=== PATIENT | male | born 1995 | race Caucasian/White ===

== ENCOUNTER 2016-07-20 20:40 | Inpatient (IN) | payer OTHER ==
[~2016-07-20] VITALS: Ht 172.7 cm; Wt 70.3 kg
[2016-07-20 21:21] LABS: BASO % 0.1 % (0.0-1.0); EOS # 0.2 K/mm3 (0.0-0.50); EOS % 1.5 % (0.0-3.0); LARGE UNSTAINED CELL # 0.2 K/mm3 (0.0-0.4); LARGE UNSTAINED CELL % 1.1 % (0.0-4.0); LYMPH # 1.4 K/mm3 (1.5-6.5); MEAN CORPUSCULAR HEMOGLOBIN 30.5 pg (27.0-33.0); MONO # 0.7 K/mm3 (0.0-0.8); MONO % 4.2 % (0.0-5.0); NEUTROPHILS # 13.2 K/mm3 (1.8-7.7); NEUTROPHILS % 84.1 % (36.0-66.0); PLATELET COUNT, AUTOMATED 290 k/mm3 (150-450); RED CELL DISTRIBUTION WIDTH 11.6 % (11.5-14.5); WHITE BLOOD COUNT 15.7 K/mm3 (4.0-10.0)
[2016-07-20] MEDS ORDERED: CLEO150C PO (21:24)
[2016-07-20] MEDS ORDERED: PERI0.126 SSP (21:24)
[2016-07-20] MEDS ORDERED: HYDR-3713 PO (21:24)
[2016-07-20] MEDS ORDERED: IBUP60TA PO (21:24)
[2016-07-20 21:51] LABS: ANION GAP 10 MEQ/L (8-16); BLOOD UREA NITROGEN 10 MG/DL (7-18); CALCIUM LEVEL 9.4 MG/DL (8.5-10.1); CARBON DIOXIDE LEVEL 29 MEQ/L (21-32); CHLORIDE LEVEL 98 MEQ/L (98-107); CREATININE FOR GFR 1.01 MG/DL (0.70-1.30); GLUCOSE, FASTING 109 MG/DL (70-105); POTASSIUM SERUM 3.5 MEQ/L (3.5-5.1); SODIUM LEVEL 137 MEQ/L (136-145)
[2016-07-20] MEDS ORDERED: ISOVUE-370 76% 100ML VIAL (Q9967) As Ordered ONE (22:09)
[2016-07-20] MEDS ORDERED: UNASYN 3 GM VIAL As Ordered ONE (22:25)
--- NOTE | 2016-07-20 23:00 | REPUSA ---
CT of the soft tissues of the neck with contrast Clinical history: swelling. Technique: Multiple axial CT images were obtained from the base of the skull to the upper thorax afte r administration of nonionic intravenous contrast. Coronal and sagittal reconstructions were also obt ained. Findings: The visualized paranasal sinuses are clear. The pterygopalatine fossa, pterygoid plates and pterygoid muscles are unremarkable. The mucosa of the naso- and oropharynx appears unremarkable. The hypopharynx and larynx show no pathology. The visualized osseous structures are intact. The airway i s patent. No focal mass is appreciated. There is no evidence of lymphadenopathy. The thyroid gland ap pears unremarkable. There is extensive superficial soft tissue swelling in the left mandibular and ma xillary regions. No focal mass or fluid collection is identified. Tiny pockets of gas are seen at the tooth extraction site in the posterior left mandible. Impression: Diffuse ill-defined soft tissue swelling in the left maxillary and mandibular regions, co nsistent with cellulitis. No discrete evidence of an abscess is identified at this time. Follow-up is suggested as clinically indicated.
[2016-07-20] MEDS ORDERED: ACETAMINOPHEN TAB 650MG DOSE (2X325MG) As Ordered ONE (23:13)
[2016-07-20] MEDS ORDERED: MORPHINE 2 MG/ML 1ML SYRINGE IV PRN (23:30)
[2016-07-20] MEDS ORDERED: ONDANSETRON 4MG/2ML VIAL (J2405) IV PRN (23:30)
[2016-07-20] MEDS ORDERED: PERCOCET 5MG/325MG TAB PO PRN (23:30)
[2016-07-20] MEDS ORDERED: ONDANSETRON 4 MG TAB (S0181) PO PRN (23:30)
[2016-07-20] MEDS ORDERED: ACETAMINOPHEN TAB 650MG DOSE (2X325MG) PO PRN (23:30)
[2016-07-21] VITALS (8 sets, daily range): BP systolic 139–168; BP diastolic 70–92
--- NOTE | 2016-07-21 00:06 | HPEPDOC ---
Medical History and Physical Date of Admission Jul 20, 2016 at 23:22 History and Physical HISTORY AND PHYSICAL Date of admission: 07/20/2016 PCP: Wen Doll Chief complaint: My face was swelling HPI: 20-year-old healthy male who had routine extraction of all 4 wisdom teeth on Sunday. He states that yesterday, he started noticing he was having some swelling on the left side of his face, and when it didn't get any better today, he returned to his oral surgeon on post. At that time, the oral surgeon placed 2 drains, and started him on some clindamycin. He was instructed, that if the swelling did not improve, he should go to the ER. This evening, he felt that his swelling was worse, so he came into the ER. His surgeon has evidently spoken to Dr. Sosa, who has requested that the patient be admitted for IV antibiotics, and is planning to see the patient in consultation tomorrow. The patient reports some fevers and chills, as well as associated nausea. However, he denies any difficulty breathing or feelings like his throat was swelling. 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 He is and expecting his first child. He denies any drug or alcohol use. Allergies: No known drug allergies Review of systems: General: Positive for fever and chills Eyes: Negative for vision changes and ocular discharge ENT: Negative for sore throat and nose bleed Cardiovascular: Negative for chest pain and palpitations Respiratory: Negative for cough and shortness of breath GI: Negative for vomiting, diarrhea, constipation. Positive for nausea. Musculoskeletal: Negative for neck and back pain. Skin: Negative for rash Neuro: Negative for headache, numbness, tingling. Positive for dizziness. Psych: Negative for suicidal ideation and depression Endocrine: Negative for polyuria : Negative For dysuria Heme: Negative for bruising and bleeding Home meds: See below Physical exam: Vital signs: Blood pressure 136/79, HR 95, temperature 101.3, O2 sat 96% on room air, RR 16 Gen.: awake, alert, no acute distress Eyes: Extraocular movements intact, normal sclera ENT: Moist mucous membranes, drain visible on lower left aspect of mouth, significant external swelling of left mandible Cardiovascular: RRR, no murmurs rubs or gallops Lungs: clear to auscultation bilaterally, no rales, rhonchi, or wheeze Abdomen: Soft, NT/ND, normal BS Musculoskeletal: normal range of motion Extremities: No peripheral edema Neuro: alert and oriented 3, normal speech, no focal deficits Psych: Normal mood with congruent affect Labs and radiology: See below WBC 15.[address] of the neck and mandible shows cellulitis but no abscess Assessment and plan: 20-year-old healthy male who presents with swelling of his left face status post recent wisdom teeth extraction, and she was admitted with sepsis secondary to facial cellulitis. 1. Sepsis secondary to facial cellulitis: Upon arrival to the ED, the patient was tachycardic to 113 with a fever of 101.3. He has a white count of 15.7. CT imaging of his neck and mandible are consistent with cellulitis but show no evidence of abscess. At this time, we will start the patient on IV Unasyn, and follow-up is pending blood cultures. Dr. Sosa with oral surgery, will see the patient tomorrow in consultation. We will continue the patient's chlorhexidine rinse. He is currently hemodynamically stable with no evidence of hypotension or other organ dysfunction. DVT prophylaxis: Lovenox Dispo: admit as an inpatient to the service of Dr. Mishra CODE STATUS: Full code Vital Signs see above Laboratory Data Labs 24H Laboratory Tests 2 07/20/16 21:09: Anion Gap 10, White Blood Count 15.7H, Red Blood Count 5.40, Hemoglobin 16.4, Hematocrit 47.0, Mean Corpuscular Volume 87.0, Mean Corpuscular Hemoglobin 30.5 , Mean Corpuscular Hemoglobin Concent 35.0, Red Cell Distribution Width 11.6, Platelet Count 290, Neutrophils (%) (Auto) 84.1H, Lymphocytes (%) (Auto) 9.0L, Monocytes (%) (Auto) 4.2, Eosinophils (%) (Auto) 1.5, Basophils (%) (Auto) 0.1, Neutrophils # (Auto) 13.2H, Lymphocytes # (Auto) 1.4L, Monocytes # (Auto) 0.7, Eosinophils # (Auto) 0.2, Basophils # (Auto) 0.0, Blood Urea Nitrogen 10, Creatinine 1.01, Sodium Level 137, Potassium Level 3.5, Chloride Level 98, Carbon Dioxide Level 29, Calcium Level 9.4, Large Unclassified Cells # 0.2, Large Unclassified Cells % 1.1 CBC/BMP Laboratory Tests 07/20/16 21:09 Calcium Level 9.4, Red Blood Count 5.40, Mean Corpuscular Volume 87.0, Mean Corpuscular Hemoglobin 30.5, Mean Corpuscular Hemoglobin Concent 35.0, Red Cell Distribution Width 11.6, Neutrophils (%) (Auto) 84.1 H, Lymphocytes (%) (Auto) 9.0 L, Monocytes (%) (Auto) 4.2, Eosinophils (%) (Auto) 1.5, Basophils (%) (Auto ) 0.1, Neutrophils # (Auto) 13.2 H, Lymphocytes # (Auto) 1.4 L, Monocytes # ( Auto) 0.7, Eosinophils # (Auto) 0.2, Basophils # (Auto) 0.0 Microbiology Microbiology 07/20/16 Blood Culture, Received Pending 07/20/16 Blood Culture, Received Pending Home Medications Scheduled Chlorhexidine Gluconate (Peridex) 0.12 % Vivian 10 ML SSP TID Clindamycin Hcl (Cleocin) 150 Mg Cap 300 MG PO Q6H Scheduled PRN Acetaminophen/Hydrocodone (Hydrocodone/Acetaminophen 5-325 mg) 1 Tab Tab 1 TAB PO Q6H PRN PRN PAIN Ibuprofen (Ibuprofen) 600 Mg Tab 600 MG PO Q6H PRN PRN PAIN Allergies Coded Allergies: No Known Allergies (Unverified , 07/20/16) LONNY CHRISTY Jul 21, 2016 00:06
--- NOTE | 2016-07-21 00:57 | EDDOCDS ---
Nurse's Notes [facility] Name: Brian Dyson Age: 20 yrs Sex: Male : 1995 Arrival Date: 07/20/2016 Time: 20:40 Bed 8 Private MD: Other - Complete Info On Cds Diagnosis: Localized swelling, mass and lump of skin and subcutaneous tissue-left maxilla/mandibular spaces Presentation: 07/20 20:49 Presenting complaint: Patient states: [place] teeth removed Sunday by Dr. Dior at [place] [id number] [facility] on [address]. Was seen in the office today and told it was infected and put on antibiotics and a drain was put in. Pt reports that the swelling has increased and spread into his neck. Denies difficulty swallowing at this time. Pain is currently 3/10. Adult Sepsis Screening: The patient does not have new or worsening altered mentation. Patient's respiratory rate is less than 22. Systolic blood pressure is greater than 100. Patient has a qSOFA score of 0- Negative Sepsis Screen. Suicide/Homicide risk assessment- the patient denies having any suicidal and/or homicidal ideations and does not present with any other emotional, behavioral or mental health complaints. 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 Transition of care: patient was not received from another setting of care. 20:49 Acuity: ILYA Level 2 1 20:49 Method Of Arrival: Walkin/Carried/Asstd lf1 Triage Assessment: 20:55 General: Appears uncomfortable, Behavior is cooperative. Pain: Location: mouth Pain 1 currently is 3 out of 10 on a pain scale. HIV screening NA for this visit Offered previously. Neurological: Level of Consciousness is awake, alert. EENT: swelling to face and neck. Respiratory: Respiratory effort is even, unlabored. GI: Denies nausea, vomiting. Historical: - Allergies: No known drug Allergies; - Home Meds: 1. hydrocodone-acetaminophen 5-325 mg Oral tab 1 tab every 6 hours (Last dose: 07/20/2016 11:00) 2. ibuprofen 600 mg Oral tab 1 tab every 6 hours (Last dose: 07/20/2016 13:00) 3. Cleocin 300 mg Oral cap 1 cap every 6 hours (Last dose: 07/20/2016 20:00) - PMHx: none; - PSHx: Appendectomy; - Social history: Smoking status: Patient states was never smoker of tobacco. No barriers to communication noted, The patient speaks fluent Upper Sorbian, Speaks appropriately for age, Preferred Language: Upper Sorbian. - Family history: Not pertinent. - : The pt / caregiver states he / she is not on anticoagulants. Home medication list is obtained from the patient. - Exposure Risk Screening:: None identified. Screenin:56 Screening information is obtained from the patient. Fall risk: No risks identified. lf1 Assistance ADL's: requires no assistance with activities of daily living. Abuse/DV Screen: The patient / caregiver reports he/she is: not in a situation that causes fear, pain or injury. Nutritional screening: No deficits noted. Advance Directives: Currently, there is no health care proxy. There is no active DNR order. There is no living will. home support is adequate. Assessment: 21:19 General: Appears in no apparent distress, comfortable, Behavior is appropriate for age, ko2 cooperative. Pain: Location: left cheek, mouth and left jaw. Neurological: Level of Consciousness is awake, alert. Respiratory: Airway is patent Respiratory effort is even, unlabored, Respiratory pattern is regular, symmetrical, Breath sounds are clear bilaterally. Derm: Skin is normal. 22:24 General: Appears in no apparent distress, comfortable, Behavior is appropriate for age, ko2 cooperative. Neurological: Level of Consciousness is awake, alert. Respiratory: Airway is patent Respiratory effort is even, unlabored. Derm: Skin is normal. 23:22 General: Appears in no apparent distress, comfortable, Behavior is appropriate for age, ko2 cooperative. Neurological: Level of Consciousness is awake, alert. Respiratory: Airway is patent Respiratory effort is even, unlabored, Respiratory pattern is. Derm: Skin is normal. 07/21 00:38 General: Appears in no apparent distress, Behavior is appropriate for age, cooperative. ko2 Neurological: Level of Consciousness is awake, alert. Respiratory: Airway is patent Respiratory effort is even, unlabored. Derm: Skin is normal. Vital Signs: 07/20 20:42 BP 156 / 80; Pulse 113; Resp 18 S; Temp 101.3(O); Pulse Ox 99% on R/A; Weight 70.31 kg gr2 (R); Height 68 in. (172.72 cm) (R); Pain 3/10; 20:58 BP 145 / 76 (auto/); ko2 20:59 Pulse 112 MON; Pulse Ox 97% ; ko2 21:43 BP 150 / 76 (auto/); ko2 21:44 Pulse 86 MON; Pulse Ox 98% ; ko2 22:13 Pulse 82 MON; Pulse Ox 99% ; ko2 22:36 BP 142 / 88 (auto/); ko2 22:43 BP 143 / 84 (auto/); ko2 22:43 Pulse 88 MON; Pulse Ox 100% ; ko2 23:13 BP 144 / 76 (auto/); ko2 23:14 Pulse 92 MON; Pulse Ox 99% ; ko2 07/21 00:09 BP 134 / 68; Pulse 99; Resp 16; Temp 99.5(O); Pulse Ox 97% ; Pain 2/10; ko2 07/20 20:42 Body Mass Index 23.57 (70.31 kg, 172.72 cm) gr2 Vitals: 07/20 20:42 Log In Time: July 20, 2016 at 20:42. gr2 ED Course: 20:41 Patient visited by Betty Amor. gr2 20:41 Other - Complete Info On Cds is Private Physician. gr2 20:41 Patient moved to Waiting gr2 20:43 Patient visited by Betty Amor. gr2 20:43 Patient moved to Pre RCE gr2 20:53 Triage Initiated lf1 20:54 Karina Sloan FNP is PHCP. le 20:54 Stephanie Salvador,RN is Primary Nurse. cz 20:54 Patient moved to 8 cz 21:08 Patient visited by Karina Sloan FNP. le 21:12 Patient visited by Karina Sloan FNP. le 21:19 BLOOD CULTURES Sent. ko2 21:20 The patient / caregiver is instructed regarding the plan of care and ED course. ko2 21:20 Inserted saline lock: 20 gauge in left antecubital area and blood collected. The ko2 patient tolerated the procedure well. 22:23 Patient visited by Barbie Jeffers PCA. devonte 23:09 CT Neck With Contrast Returned. EDMS 23:14 Tory Lopez is Hospitalizing Provider. le 23:45 [facility] [place] Payment Agreement was scanned into [employer] and attached to record. pm4 07/21 00:39 No procedures done that require assistance. ko2 00:41 Patient visited by Robb Collins PCA. kb5 Administered Medications: 07/20 21:19 Drug: NS 0.9% 1000 ml [sodium chloride 0.9 % intravenous solution] Route: IV; Rate: 150 ko2 mL/hr; Site: left antecubital; 22:38 Drug: Ampicillin-Sulbactam Sodium 3 grams [ampicillin-sulbactam 1.5 gram solution for ko2 injection] Route: IVPB; Infused Over: 30 mins; Site: left antecubital; 07/21 00:10 Follow up: IV Intake: 100ml ko2 00:10 Follow up: IV Status: Completed infusion ko2 07/20 23:17 Drug: Acetaminophen 650 mg [acetaminophen 160 mg/5 mL (5 mL) oral solution (20 mL)] ko2 Route: PO; Intake: 07/21 00:10 IV: 100.00ml; Total: 100.00ml. ko2 Order Results: Lab Order: CBC with Diff; SPEC'M 07/20/16 21:09 Test: WHITE BLOOD COUNT; Value: 15.7; Range: 4.0-10.0; Abnormal: Above high normal; Units: K/mm3; Status: F Test: RED BLOOD COUNT; Value: 5.40; Range: 4.30-6.10; Units: M/mm3; Status: F Test: HEMOGLOBIN; Value: 16.4; Range: 14.0-18.0; Units: g/dl; Status: F Test: HEMATOCRIT; Value: 47.0; Range: 42.0-52.0; Units: %; Status: F Test: MEAN CORPUSCULAR VOLUME; Value: 87.0; Range: 80.0-96.0; Units: fl; Status: F Test: MEAN CORPUSCULAR HEMOGLOBIN; Value: 30.5; Range: 27.0-33.0; Units: pg; Status: F Test: MEAN CORPUSCULAR HGB CONC; Value: 35.0; Range: 32.0-36.5; Units: g/dl; Status: F Test: RED CELL DISTRIBUTION WIDTH; Value: 11.6; Range: 11.5-14.5; Units: %; Status: F Test: PLATELET COUNT, AUTOMATED; Value: 290; Range: 150-450; Units: k/mm3; Status: F Test: NEUTROPHILS %; Value: 84.1; Range: 36.0-66.0; Abnormal: Above high normal; Units: %; Status: F Test: LYMPH %; Value: 9.0; Range: 24.0-44.0; Abnormal: Below low normal; Units: %; Status: F Test: MONO %; Value: 4.2; Range: 0.0-5.0; Units: %; Status: F Test: EOS %; Value: 1.5; Range: 0.0-3.0; Units: %; Status: F Test: BASO %; Value: 0.1; Range: 0.0-1.0; Units: %; Status: F Test: LARGE UNSTAINED CELL %; Value: 1.1; Range: 0.0-4.0; Units: %; Status: F Test: NEUTROPHILS #; Value: 13.2; Range: 1.8-7.7; Abnormal: Above high normal; Units: K/mm3; Status: F Test: LYMPH #; Value: 1.4; Range: 1.5-6.5; Abnormal: Below low normal; Units: K/mm3; Status: F Test: MONO #; Value: 0.7; Range: 0.0-0.8; Units: K/mm3; Status: F Test: EOS #; Value: 0.2; Range: 0.0-0.50; Units: K/mm3; Status: F Test: BASO #; Value: 0.0; Range: 0.0-0.2; Units: K/mm3; Status: F Test: LARGE UNSTAINED CELL #; Value: 0.2; Range: 0.0-0.4; Units: K/mm3; Status: F Lab Order: [facility]; SPEC'M 07/20/16 21:09 Test: GLUCOSE, FASTING; Value: 109; Range: 70-105; Abnormal: Above high normal; Units: MG/DL; Status: F Test: BLOOD UREA NITROGEN; Value: 10; Range: 7-18; Units: MG/DL; Status: F Test: CREATININE FOR GFR; Value: 1.01; Range: 0.70-1.30; Units: MG/DL; Status: F Test: SODIUM LEVEL; Value: 137; Range: 136-145; Units: MEQ/L; Status: F Test: POTASSIUM SERUM; Value: 3.5; Range: 3.5-5.1; Units: MEQ/L; Status: F Test: CHLORIDE LEVEL; Value: 98; Range: 98-107; Units: MEQ/L; Status: F Test: CARBON DIOXIDE LEVEL; Value: 29; Range: 21-32; Units: MEQ/L; Status: F Test: ANION GAP; Value: 10; Range: 8-16; Units: MEQ/L; Status: F Test: CALCIUM LEVEL; Value: 9.4; Range: 8.5-10.1; Units: MG/DL; Status: F Radiology Order: CT Neck With Contrast Test: CT Neck With Contrast REASON FOR EXAMINATION: jaw/neck swelling s/p extraction; ; CT of the soft tissues of the neck with contrast; Clinical history: swelling.; Technique: Multiple axial CT images were obtained from the base of the skull to the upper thorax afte; r administration of nonionic intravenous contrast. Coronal and sagittal reconstructions were also obt; ained.; Findings: The visualized paranasal sinuses are clear. The pterygopalatine fossa, pterygoid plates and; pterygoid muscles are unremarkable. The mucosa of the naso- and oropharynx appears unremarkable. The; hypopharynx and larynx show no pathology. The visualized osseous structures are intact. The airway i; s patent. No focal mass is appreciated. There is no evidence of lymphadenopathy. The thyroid gland ap; pears unremarkable. There is extensive superficial soft tissue swelling in the left mandibular and ma; xillary regions. No focal mass or fluid collection is identified. Tiny pockets of gas are seen at the; tooth extraction site in the posterior left mandible.; Impression: Diffuse ill-defined soft tissue swelling in the left maxillary and mandibular regions, co; nsistent with cellulitis. No discrete evidence of an abscess is identified at this time. Follow-up is; suggested as clinically indicated.; ; Outcome: 07/20 23:15 Decision to Hospitalize by Provider. le 23:51 CT Study completed. ko2 07/21 00:39 Discharge Assessment: Patient awake, alert and oriented x 3. No cognitive and/or ko2 functional deficits noted. Patient verbalized understanding of disposition instructions. patient administered narcotics - no. The following High Risk Discharge criteria are identified: None. Admitted to Pediatrics accompanied by tech, family with patient, via wheelchair, with chart. Condition: stable. Admission hand-off: Report called to VIKA Varmas. Property sent home with patient. 00:57 Patient left the ED. ml3 Signatures: Dispatcher [employer] EDMS Manuel Ames RN RN cz Lopresti, Mary-Elizabeth, Milker Machine Unit ml3 Robb Collins, HAT RENOVATOR HAT RENOVATOR kb5 Karina Diane RN RN lf1 Karina Sloan, TITLE I DIRECTOR TITLE I DIRECTOR Barbie Henderson, HAT RENOVATOR HAT RENOVATOR devonte Betty Amor 2 Stephanie Salvador RN RN ko2 Rivera Cook, Reg Reg pm4 MTDD
--- NOTE | 2016-07-21 00:57 | EDDOCDS ---
Physician Documentation [facility] Name: Brian Dyson Age: 20 yrs Sex: Male : 1995 Arrival Date: 07/20/2016 Time: 20:40 Bed 8 Private MD: Other - Complete Info On Cds Disposition: 07/20/16 23:15 Hospitalization ordered by Tory Lopez for Observation. Preliminary diagnosis is Localized swelling, mass and lump of skin and subcutaneous tissue - left maxilla/mandibular spaces. - Bed requested for M PED. - Status is Observation. ml3 - Condition is Stable. - Problem is new. - Symptoms are unchanged. Historical: - Allergies: No known drug Allergies; - Home Meds: 1. hydrocodone-acetaminophen 5-325 mg Oral tab 1 tab every 6 hours (Last dose: 07/20/2016 11:00) 2. ibuprofen 600 mg Oral tab 1 tab every 6 hours (Last dose: 07/20/2016 13:00) 3. Cleocin 300 mg Oral cap 1 cap every 6 hours (Last dose: 07/20/2016 20:00) - PMHx: none; - PSHx: Appendectomy; - Social history: Smoking status: Patient states was never smoker of tobacco. No barriers to communication noted, The patient speaks fluent East Timorese, Speaks appropriately for age, Preferred Language: East Timorese. - Family history: Not pertinent. - : The pt / caregiver states he / she is not on anticoagulants. Home medication list is obtained from the patient. - Exposure Risk Screening:: None identified. Vital Signs: 07/20 20:42 BP 156 / 80; Pulse 113; Resp 18 S; Temp 101.3(O); Pulse Ox 99% on R/A; Weight 70.31 kg gr2 / 155.01 lbs (R); Height 68 in. (172.72 cm) (R); Pain 3/10; 20:58 BP 145 / 76 (auto/); ko2 20:59 Pulse 112 MON; Pulse Ox 97% ; ko2 21:43 BP 150 / 76 (auto/); ko2 21:44 Pulse 86 MON; Pulse Ox 98% ; ko2 22:13 Pulse 82 MON; Pulse Ox 99% ; ko2 22:36 BP 142 / 88 (auto/); ko2 22:43 BP 143 / 84 (auto/); ko2 22:43 Pulse 88 MON; Pulse Ox 100% ; ko2 23:13 BP 144 / 76 (auto/); ko2 23:14 Pulse 92 MON; Pulse Ox 99% ; ko2 07/21 00:09 BP 134 / 68; Pulse 99; Resp 16; Temp 99.5(O); Pulse Ox 97% ; Pain 2/10; ko2 07/20 20:42 Body Mass Index 23.57 (70.31 kg, 172.72 cm) gr2 MDM: 07/20 20:58 IV Saline Lock ordered. le 20:58 -Blood Culture (Adults Only), peripheral from different site, or from device/port/PICC le etc. if present ordered. 20:58 NS 0.9% 1000 ml IV at 150 mL/hr continuous ordered. le 20:58 Ampicillin-Sulbactam Sodium 3 grams IVPB once over 30 mins; dilute in 100mL of NS or le D5W ordered. 20:58 CBC with Diff Ordered. EDMS 20:59 BMP Ordered. EDMS 20:59 -Blood Culture Ordered. EDMS 20:59 -Blood Culture (Adults Only), peripheral from different site, or from device/port/PICC ml3 etc. if present complete. 20:59 CT Neck With Contrast Ordered. EDMS 20:59 BED REQUEST+ADM ordered. EDMS 21:00 BLOOD CULTURES Ordered. EDMS 21:19 NOTHING BY MOUTH+DIET ordered. EDMS 21:58 CBC with Diff Reviewed. le 21:58 BMP Reviewed. le 23:04 Acetaminophen Liquid 650 mg PO once ordered. le 23:17 Acetaminophen Liquid 650 mg PO once ordered. ko2 23:27 CBC WITH DIFFERENTIAL Ordered. EDMS 23:27 BASIC METABOLIC PROFILE Ordered. EDMS 23:27 MAGNESIUM LEVEL Ordered. EDMS 23:29 Admission / Observation Status ordered. EDMS 23:30 REGULAR DIET ordered. EDMS 23:35 Financial registration complete. pm4 23:45 [facility] [place] Agreement was scanned into [employer] and attached to record. pm4 Administered Medications: 21:19 Drug: NS 0.9% 1000 ml [sodium chloride 0.9 % intravenous solution] Route: IV; Rate: 150 ko2 mL/hr; Site: left antecubital; 22:38 Drug: Ampicillin-Sulbactam Sodium 3 grams [ampicillin-sulbactam 1.5 gram solution for ko2 injection] Route: IVPB; Infused Over: 30 mins; Site: left antecubital; 07/21 00:10 Follow up: IV Intake: 100ml ko2 00:10 Follow up: IV Status: Completed infusion ko2 07/20 23:17 Drug: Acetaminophen 650 mg [acetaminophen 160 mg/5 mL (5 mL) oral solution (20 mL)] ko2 Route: PO; Signatures: Dispatcher [employer] EDMS Oneyda OLMOS, Elvia RN RN daq Kamille Guevara, Material Disposition Inspector Unit ml3 Karina Diane,VIKA RN lf1 Karina Sloan, INTERLIBRARY LOAN SERVICES LIBRARIAN INTERLIBRARY LOAN SERVICES LIBRARIAN Stephanie Mcneal RN RN ko2 Rivera Cook, Reg Reg pm4 The chart was reviewed and I authenticate all verbal orders and agree with the evaluation and treatment provided.Attachments: 23:45 [facility] Payment Agreement pm4 MTDD
[2016-07-21] MEDS: AMPICILLIN SOD/SULBACTAM SOD 3 GM in D5W MINI-BAG PLUS 100 ML IV SCH ×4 (05:01→23:47)
[2016-07-21 06:50] LABS: ANION GAP 8 MEQ/L (8-16); BLOOD UREA NITROGEN 9 MG/DL (7-18); CALCIUM LEVEL 9.1 MG/DL (8.5-10.1); CARBON DIOXIDE LEVEL 31 MEQ/L (21-32); CHLORIDE LEVEL 100 MEQ/L (98-107); CREATININE FOR GFR 0.88 MG/DL (0.70-1.30); GLUCOSE, FASTING 92 MG/DL (70-105); MAGNESIUM LEVEL 2.4 MG/DL (1.4-2.0); POTASSIUM SERUM 3.9 MEQ/L (3.5-5.1); SODIUM LEVEL 139 MEQ/L (136-145)
[2016-07-21 07:09] LABS: BASO % 0.2 % (0.0-1.0); EOS # 0.1 K/mm3 (0.0-0.50); EOS % 0.5 % (0.0-3.0); LARGE UNSTAINED CELL # 0.3 K/mm3 (0.0-0.4); LARGE UNSTAINED CELL % 2.3 % (0.0-4.0); LYMPH # 1.8 K/mm3 (1.5-6.5); LYMPH % 16.7 % (24.0-44.0); MEAN CORPUSCULAR HGB CONC 34.9 g/dl (32.0-36.5); MEAN CORPUSCULAR VOLUME 88.8 fl (80.0-96.0); MONO # 0.6 K/mm3 (0.0-0.8); MONO % 5.9 % (0.0-5.0); NEUTROPHILS % 74.3 % (36.0-66.0); PLATELET COUNT, AUTOMATED 263 k/mm3 (150-450); RED CELL DISTRIBUTION WIDTH 11.7 % (11.5-14.5); WHITE BLOOD COUNT 10.8 K/mm3 (4.0-10.0)
[2016-07-21 08:50] LABS: VENOUS BASE EXCESS 3.3 (-2.0-2.0); VENOUS O2 SATURATION 54.4 % (60.0-80.0); VENOUS PARTIAL PRESSURE CO2 48.2 mmHg (38.0-50.0); VENOUS PARTIAL PRESSURE O2 27.5 mmHg (30.0-50.0); VENOUS STANDARD HCO3 26.2 MEQ/L; VENOUS TOTAL CO2 30.6 MEQ/L (24.0-28.0)
[2016-07-21] MEDS ORDERED: ENOXAPARIN 40 MG/0.4 ML SYRINGE (J1650) SC SCH (09:00)
[2016-07-21] MEDS ORDERED: CHLORHEXIDINE GLUCONATE 0.12 % 15ML UDC (PERIDEX ORAL RINSE) SSP SCH (09:00)
[2016-07-21] MEDS ORDERED: MIDAZOLAM INJ 2 MG/2 ML VIAL (J2250) As Ordered ONE (13:23)
[2016-07-21] MEDS ORDERED: fentaNYL 250 MCG/5 ML INJECTION (J3010) As Ordered ONE (13:24)
[2016-07-21] MEDS ORDERED: LIDOCAINE 2% INJ 100 MG/5 ML SDV (FOR ANES.) As Ordered ONE (13:25)
[2016-07-21] MEDS ORDERED: PROPOFOL 200 MG/20 ML VIAL As Ordered ONE ×2 (13:26→13:28)
[2016-07-21] MEDS ORDERED: ROCURONIUM BROMIDE 50 MG/5 ML VIAL As Ordered ONE (13:29)
[2016-07-21] MEDS ORDERED: PHENYLEPHRINE 0.5% NASAL SPRAY 15 ML As Ordered ONE (14:08)
[2016-07-21] MEDS ORDERED: LIDOCAINE 2% W/ EPINEPHRINE 1.7 ML DENTAL INJ As Ordered ONE ×2 (14:08→14:34)
[2016-07-21] MEDS ORDERED: OXYMETAZOLINE NASAL SPRAY (AFRIN) As Ordered ONE ×2 (14:10→14:12)
[2016-07-21] MEDS ORDERED: dexameTHASONE 4 MG/ML 1ML VIAL (J1100) As Ordered ONE ×2 (14:56)
[2016-07-21] MEDS ORDERED: METOCLOPRAMIDE INJ 10MG/2ML VIAL (J2765) As Ordered ONE (14:56)
[2016-07-21] MEDS ORDERED: ONDANSETRON 4MG/2ML VIAL (J2405) As Ordered ONE (14:57)
--- NOTE | 2016-07-21 14:57 | IPN ---
DATE: 07/21/2016 SUBJECTIVE: This is a 20-year-old male who is seen and examined at the bedside. Overnight, the patient was admitted for a facial abscess. The patient was recently undergoing fourth wisdom teeth removal by his dentist. After removal of his teeth, sometime shortly after developed pain and swelling to his left mouth. Actually was reevaluated by his dentist and at that time had incision and drainage and was treated with clindamycin. Unfortunately, despite treatment he continued to report worsening pain and also swelling. He was evaluated in the ER by the oral surgeon. This morning, he states that his pain is tolerable, actually does not have significant pain. No fevers, chills, nausea, vomiting. He has been made nothing by mouth. He denies any dysphagia, increased elevation, neck pain, difficulty with speech or swallow. OBJECTIVE: VITAL SIGNS: Blood pressure 149/92, heart rate 76, respiratory rate 18, temperature 96.8, pulse oximetry 97% on room air. Intake and output the last 24 hours 340/0, question accuracy. GENERAL: Patient is sitting in bed comfortable. No acute distress. He is alert, awake and oriented times three, pleasant and cooperative. HEENT: Normocephalic. Extraocular movement intact. Left jaw is significantly swollen and firm to palpation, but no significantly tender. Oral mucosa with drain in place. No obvious purulent or serosanguineous drainage appreciated. NECK: Supple. Trachea midline. There is lymphadenopathy in the anterior cervical. CHEST: Symmetric chest rise. No accessory muscle use. Breath sounds clear to auscultation bilaterally. HEART: Regular rate and rhythm. S1 and S2 present. ABDOMEN: Soft, nontender, nondistended. Bowel sounds present. No guarding. No rebound. EXTREMITIES: No pedal edema. Pedal pulses present bilaterally. LABORATORY DATA: WBC 10.8, improved from yesterday 15.7, hemoglobin 15.2, hematocrit 43.7 and platelets 263, neutrophils 74.3, sodium 139, potassium 3.9, chloride 100, carbon dioxide 31, BUN 9, creatinine 0.88, fasting glucose 92, lactic acid 1, CRP is 17.4. Blood cultures negative times two. CT neck on admission showed diffuse ill defined soft tissue swelling in the left maxillary and mandibular region. ASSESSMENT/PLAN: Mr. Dyson is a 20-year-old male who presented with left jaw pain and swelling. 1. Sepsis secondary to facial abscess. Currently the plan is for him to undergo incision and drainage with oral surgeon. He has been made nothing by mouth. Continue Unasyn. Received a total of three doses so far including ED dose. Will followup with wound culture after surgery. His source of infection was likely secondary to his recent dental removal. Continue pain control. Does not appear to be needing his morphine, Percocet or Tylenol recently. 2. Leukocytosis secondary to underlying infection. 3. Deep vein thrombosis (DVT) prophylaxis. Sequential compression devices (SCD ) and thromboembolic deterrent stockings (TEDS). Lovenox is held pending surgery. My preceptor for this patient encounter was Dr. Bean Mishra. The preceptor was physically present in the building during the encounter and was fully available. As needed, all aspects of the patient interview, examination, medical decision making process, and medical care plan development were reviewed and approved by the preceptor. The preceptor is aware and concurs with the plan as stated in the body of this note and will attest to such by his/her cosignature. KAMRYN
[2016-07-21] MEDS ORDERED: ESMOLOL INJ 100MG/10ML VIAL As Ordered ONE (14:59)
[2016-07-21] MEDS ORDERED: GLYCOPYRROLATE INJ 0.2 MG/ML 2 ML VIAL As Ordered ONE ×2 (15:12)
[2016-07-21] MEDS ORDERED: NEOSTIGMINE 1MG/ML 5 ML SYRINGE (J2710) As Ordered ONE (15:12)
[2016-07-21] MEDS ORDERED: fentaNYL 100 MCG/2 ML INJECTION (J3010) IV PRN (16:15)
[2016-07-21] MEDS ORDERED: METOCLOPRAMIDE INJ 10MG/2ML VIAL (J2765) IV PRN (16:15)
[2016-07-21] MEDS ORDERED: ONDANSETRON 4MG/2ML VIAL (J2405) IV PRN ×2 (16:15→16:30)
[2016-07-21] MEDS ORDERED: LR 1,000 ML IV SCH (16:15)
[2016-07-21] MEDS ORDERED: KETOROLAC 30 MG/ML VIAL (J1885) IV PRN (16:15)
[2016-07-21] MEDS ORDERED: MEPERIDINE INJ 25 MG/ML VIAL (J2175) IV PRN (16:15)
[2016-07-21] MEDS ORDERED: PERCOCET 5MG/325MG TAB PO PRN ×2 (16:15→16:30)
[2016-07-21] MEDS ORDERED: MORPHINE 2 MG/ML 1ML SYRINGE IV PRN (17:00)
[2016-07-21] MEDS: CHLORHEXIDINE GLUCONATE 0.12 % 15ML UDC (PERIDEX ORAL RINSE) SSP SCH ×2 (17:10→21:16)
[2016-07-21] MEDS: IBUPROFEN 800 MG TAB PO SCH (23:46)
[2016-07-22] VITALS: BP 143/76
[2016-07-22 04:00] VITALS: BP 130/74
[2016-07-22] MEDS: AMPICILLIN SOD/SULBACTAM SOD 3 GM in D5W MINI-BAG PLUS 100 ML IV SCH ×4 (05:51→23:17)
[2016-07-22 06:20] LABS: BASO # 0.1 K/mm3 (0.0-0.2); BASO % 0.6 % (0.0-1.0); EOS # 0.1 K/mm3 (0.0-0.50); EOS % 0.7 % (0.0-3.0); LARGE UNSTAINED CELL # 0.1 K/mm3 (0.0-0.4); LARGE UNSTAINED CELL % 1.2 % (0.0-4.0); LYMPH # 1.2 K/mm3 (1.5-6.5); LYMPH % 9.8 % (24.0-44.0); MEAN CORPUSCULAR HEMOGLOBIN 29.9 pg (27.0-33.0); MEAN CORPUSCULAR HGB CONC 34.3 g/dl (32.0-36.5); MEAN CORPUSCULAR VOLUME 87.2 fl (80.0-96.0); MONO # 0.5 K/mm3 (0.0-0.8); NEUTROPHILS # 8.8 K/mm3 (1.8-7.7); NEUTROPHILS % 82.7 % (36.0-66.0); PLATELET COUNT, AUTOMATED 302 k/mm3 (150-450); RED CELL DISTRIBUTION WIDTH 12.4 % (11.5-14.5); WHITE BLOOD COUNT 10.7 K/mm3 (4.0-10.0)
[2016-07-22 06:46] LABS: ANION GAP 11 MEQ/L (8-16); BLOOD UREA NITROGEN 12 MG/DL (7-18); CARBON DIOXIDE LEVEL 28 MEQ/L (21-32); CHLORIDE LEVEL 102 MEQ/L (98-107); CREATININE FOR GFR 0.76 MG/DL (0.70-1.30); GLUCOSE, FASTING 106 MG/DL (70-105); MAGNESIUM LEVEL 2.3 MG/DL (1.4-2.0); POTASSIUM SERUM 4.3 MEQ/L (3.5-5.1); SODIUM LEVEL 141 MEQ/L (136-145)
[2016-07-22 08:00] VITALS: BP 146/66
[2016-07-22] MEDS: IBUPROFEN 800 MG TAB PO SCH ×3 (08:55→23:16)
[2016-07-22] MEDS: CHLORHEXIDINE GLUCONATE 0.12 % 15ML UDC (PERIDEX ORAL RINSE) SSP SCH ×4 (08:56→21:25)
[2016-07-22 12:00] VITALS: BP 129/67
[2016-07-22 16:00] VITALS: BP 129/57
[2016-07-22] MEDS: ENOXAPARIN 40 MG/0.4 ML SYRINGE (J1650) SC SCH (18:32)
[2016-07-22 20:00] VITALS: BP 133/59
[2016-07-23] VITALS: BP 127/61
--- NOTE | 2016-07-23 01:58 | EDDOCDS ---
Physician Documentation [facility] Name: Brian Dyson Age: 20 yrs Sex: Male : 1995 Arrival Date: 07/20/2016 Time: 20:40 Bed 8 Private MD: Other - Complete Info On Cds Disposition: 07/20/16 23:15 Hospitalization ordered by Tory Lopez for Observation. Preliminary diagnosis is Localized swelling, mass and lump of skin and subcutaneous tissue - left maxilla/mandibular spaces. - Bed requested for M PED. - Status is Observation. ml3 - Condition is Stable. - Problem is new. - Symptoms are unchanged. Historical: - Allergies: No known drug Allergies; - Home Meds: 1. hydrocodone-acetaminophen 5-325 mg Oral tab 1 tab every 6 hours (Last dose: 07/20/2016 11:00) 2. ibuprofen 600 mg Oral tab 1 tab every 6 hours (Last dose: 07/20/2016 13:00) 3. Cleocin 300 mg Oral cap 1 cap every 6 hours (Last dose: 07/20/2016 20:00) - PMHx: none; - PSHx: Appendectomy; - Social history: Smoking status: Patient states was never smoker of tobacco. No barriers to communication noted, The patient speaks fluent Kittitian, Speaks appropriately for age, Preferred Language: Kittitian. - Family history: Not pertinent. - : The pt / caregiver states he / she is not on anticoagulants. Home medication list is obtained from the patient. - Exposure Risk Screening:: None identified. Vital Signs: 07/20 20:42 BP 156 / 80; Pulse 113; Resp 18 S; Temp 101.3(O); Pulse Ox 99% on R/A; Weight 70.31 kg gr2 / 155.01 lbs (R); Height 68 in. (172.72 cm) (R); Pain 3/10; 20:58 BP 145 / 76 (auto/); ko2 20:59 Pulse 112 MON; Pulse Ox 97% ; ko2 21:43 BP 150 / 76 (auto/); ko2 21:44 Pulse 86 MON; Pulse Ox 98% ; ko2 22:13 Pulse 82 MON; Pulse Ox 99% ; ko2 22:36 BP 142 / 88 (auto/); ko2 22:43 BP 143 / 84 (auto/); ko2 22:43 Pulse 88 MON; Pulse Ox 100% ; ko2 23:13 BP 144 / 76 (auto/); ko2 23:14 Pulse 92 MON; Pulse Ox 99% ; ko2 07/21 00:09 BP 134 / 68; Pulse 99; Resp 16; Temp 99.5(O); Pulse Ox 97% ; Pain 2/10; ko2 07/20 20:42 Body Mass Index 23.57 (70.31 kg, 172.72 cm) gr2 MDM: 07/20 20:58 IV Saline Lock ordered. le 20:58 -Blood Culture (Adults Only), peripheral from different site, or from device/port/PICC le etc. if present ordered. 20:58 NS 0.9% 1000 ml IV at 150 mL/hr continuous ordered. le 20:58 Ampicillin-Sulbactam Sodium 3 grams IVPB once over 30 mins; dilute in 100mL of NS or le D5W ordered. 20:58 CBC with Diff Ordered. EDMS 20:59 BMP Ordered. EDMS 20:59 -Blood Culture Ordered. EDMS 20:59 -Blood Culture (Adults Only), peripheral from different site, or from device/port/PICC ml3 etc. if present complete. 20:59 CT Neck With Contrast Ordered. EDMS 20:59 BED REQUEST+ADM ordered. EDMS 21:00 BLOOD CULTURES Ordered. EDMS 21:19 NOTHING BY MOUTH+DIET ordered. EDMS 21:58 CBC with Diff Reviewed. le 21:58 BMP Reviewed. le 23:04 Acetaminophen Liquid 650 mg PO once ordered. le 23:17 Acetaminophen Liquid 650 mg PO once ordered. ko2 23:27 CBC WITH DIFFERENTIAL Ordered. EDMS 23:27 BASIC METABOLIC PROFILE Ordered. EDMS 23:27 MAGNESIUM LEVEL Ordered. EDMS 23:29 Admission / Observation Status ordered. EDMS 23:30 REGULAR DIET ordered. EDMS 23:35 Financial registration complete. pm4 23:45 [facility] Payment Agreement was scanned into [employer] and attached to record. pm4 07/21 11:43 T-Sheet-- Draft Copy was scanned into [employer] and attached to record. gb Administered Medications: 07/20 21:19 Drug: NS 0.9% 1000 ml [sodium chloride 0.9 % intravenous solution] Route: IV; Rate: 150 ko2 mL/hr; Site: left antecubital; 22:38 Drug: Ampicillin-Sulbactam Sodium 3 grams [ampicillin-sulbactam 1.5 gram solution for ko2 injection] Route: IVPB; Infused Over: 30 mins; Site: left antecubital; 07/21 00:10 Follow up: IV Intake: 100ml ko2 00:10 Follow up: IV Status: Completed infusion ko2 07/20 23:17 Drug: Acetaminophen 650 mg [acetaminophen 160 mg/5 mL (5 mL) oral solution (20 mL)] ko2 Route: PO; Signatures: Dispatcher [employer] EDMS Oneyda OLMOS, Elvia, RN RN daShelley Segura, Reg Reg gb Kamille Guevara, Child Psychologist Unit ml3 Karina Diane RN RN lf1 Karina Sloan, PHARMACEUTICAL OFFICER PHARMACEUTICAL OFFICER Stephanie Mcneal RN RN ko2 Rivera Cook, Reg Reg pm4 The chart was reviewed and I authenticate all verbal orders and agree with the evaluation and treatment provided.Attachments: 23:45 [facility] Payment Agreement pm4 07/21 11:43 T-Sheet-- Draft Copy gb Chart Complete MTDD
--- NOTE | 2016-07-23 01:58 | EDDOCDS ---
Physician Documentation [facility] Name: Brian Dyson Age: 20 yrs Sex: Male : 1995 Arrival Date: 07/20/2016 Time: 20:40 Bed 8 Private MD: Other - Complete Info On Cds Disposition: 07/20/16 23:15 Hospitalization ordered by Tory Lopez for Observation. Preliminary diagnosis is Localized swelling, mass and lump of skin and subcutaneous tissue - left maxilla/mandibular spaces. - Bed requested for M PED. - Status is Observation. ml3 - Condition is Stable. - Problem is new. - Symptoms are unchanged. Historical: - Allergies: No known drug Allergies; - Home Meds: 1. hydrocodone-acetaminophen 5-325 mg Oral tab 1 tab every 6 hours (Last dose: 07/20/2016 11:00) 2. ibuprofen 600 mg Oral tab 1 tab every 6 hours (Last dose: 07/20/2016 13:00) 3. Cleocin 300 mg Oral cap 1 cap every 6 hours (Last dose: 07/20/2016 20:00) - PMHx: none; - PSHx: Appendectomy; - Social history: Smoking status: Patient states was never smoker of tobacco. No barriers to communication noted, The patient speaks fluent Moroccan, Speaks appropriately for age, Preferred Language: Moroccan. - Family history: Not pertinent. - : The pt / caregiver states he / she is not on anticoagulants. Home medication list is obtained from the patient. - Exposure Risk Screening:: None identified. Vital Signs: 07/20 20:42 BP 156 / 80; Pulse 113; Resp 18 S; Temp 101.3(O); Pulse Ox 99% on R/A; Weight 70.31 kg gr2 / 155.01 lbs (R); Height 68 in. (172.72 cm) (R); Pain 3/10; 20:58 BP 145 / 76 (auto/); ko2 20:59 Pulse 112 MON; Pulse Ox 97% ; ko2 21:43 BP 150 / 76 (auto/); ko2 21:44 Pulse 86 MON; Pulse Ox 98% ; ko2 22:13 Pulse 82 MON; Pulse Ox 99% ; ko2 22:36 BP 142 / 88 (auto/); ko2 22:43 BP 143 / 84 (auto/); ko2 22:43 Pulse 88 MON; Pulse Ox 100% ; ko2 23:13 BP 144 / 76 (auto/); ko2 23:14 Pulse 92 MON; Pulse Ox 99% ; ko2 07/21 00:09 BP 134 / 68; Pulse 99; Resp 16; Temp 99.5(O); Pulse Ox 97% ; Pain 2/10; ko2 07/20 20:42 Body Mass Index 23.57 (70.31 kg, 172.72 cm) gr2 MDM: 07/20 20:58 IV Saline Lock ordered. le 20:58 -Blood Culture (Adults Only), peripheral from different site, or from device/port/PICC le etc. if present ordered. 20:58 NS 0.9% 1000 ml IV at 150 mL/hr continuous ordered. le 20:58 Ampicillin-Sulbactam Sodium 3 grams IVPB once over 30 mins; dilute in 100mL of NS or le D5W ordered. 20:58 CBC with Diff Ordered. EDMS 20:59 BMP Ordered. EDMS 20:59 -Blood Culture Ordered. EDMS 20:59 -Blood Culture (Adults Only), peripheral from different site, or from device/port/PICC ml3 etc. if present complete. 20:59 CT Neck With Contrast Ordered. EDMS 20:59 BED REQUEST+ADM ordered. EDMS 21:00 BLOOD CULTURES Ordered. EDMS 21:19 NOTHING BY MOUTH+DIET ordered. EDMS 21:58 CBC with Diff Reviewed. le 21:58 BMP Reviewed. le 23:04 Acetaminophen Liquid 650 mg PO once ordered. le 23:17 Acetaminophen Liquid 650 mg PO once ordered. ko2 23:27 CBC WITH DIFFERENTIAL Ordered. EDMS 23:27 BASIC METABOLIC PROFILE Ordered. EDMS 23:27 MAGNESIUM LEVEL Ordered. EDMS 23:29 Admission / Observation Status ordered. EDMS 23:30 REGULAR DIET ordered. EDMS 23:35 Financial registration complete. pm4 23:45 [facility] Payment Agreement was scanned into [employer] and attached to record. pm4 07/21 11:43 T-Sheet-- Draft Copy was scanned into [employer] and attached to record. gb Administered Medications: 07/20 21:19 Drug: NS 0.9% 1000 ml [sodium chloride 0.9 % intravenous solution] Route: IV; Rate: 150 ko2 mL/hr; Site: left antecubital; 22:38 Drug: Ampicillin-Sulbactam Sodium 3 grams [ampicillin-sulbactam 1.5 gram solution for ko2 injection] Route: IVPB; Infused Over: 30 mins; Site: left antecubital; 07/21 00:10 Follow up: IV Intake: 100ml ko2 00:10 Follow up: IV Status: Completed infusion ko2 07/20 23:17 Drug: Acetaminophen 650 mg [acetaminophen 160 mg/5 mL (5 mL) oral solution (20 mL)] ko2 Route: PO; Signatures: Dispatcher [employer] EDMS Oneyda OLMOS, Elvia, RN RN daShelley Segura, Reg Reg gb Kamille Guevara, Wringer Operator Unit ml3 Karina Diane RN RN lf1 Karina Sloan, SOLID WASTE DISPOSAL MANAGER SOLID WASTE DISPOSAL MANAGER Stephanie Mcneal RN RN ko2 Rivera Cook, Reg Reg pm4 The chart was reviewed and I authenticate all verbal orders and agree with the evaluation and treatment provided.Attachments: 23:45 [facility] Payment Agreement pm4 07/21 11:43 T-Sheet-- Draft Copy gb Chart Complete MTDD
--- NOTE | 2016-07-23 01:58 | EDDOCDS ---
Nurse's Notes [facility] Name: Brian Dyson Age: 20 yrs Sex: Male : 1995 Arrival Date: 07/20/2016 Time: 20:40 Bed 8 Private MD: Other - Complete Info On Cds Diagnosis: Localized swelling, mass and lump of skin and subcutaneous tissue-left maxilla/mandibular spaces Presentation: 07/20 20:49 Presenting complaint: Patient states: [place] teeth removed Sunday by Dr. Dior at [place] [id number] [facility] on [address]. Was seen in the office today and told it was infected and put on antibiotics and a drain was put in. Pt reports that the swelling has increased and spread into his neck. Denies difficulty swallowing at this time. Pain is currently 3/10. Adult Sepsis Screening: The patient does not have new or worsening altered mentation. Patient's respiratory rate is less than 22. Systolic blood pressure is greater than 100. Patient has a qSOFA score of 0- Negative Sepsis Screen. Suicide/Homicide risk assessment- the patient denies having any suicidal and/or homicidal ideations and does not present with any other emotional, behavioral or mental health complaints. 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 Transition of care: patient was not received from another setting of care. 20:49 Acuity: ILYA Level 2 1 20:49 Method Of Arrival: Walkin/Carried/Asstd lf1 Triage Assessment: 20:55 General: Appears uncomfortable, Behavior is cooperative. Pain: Location: mouth Pain 1 currently is 3 out of 10 on a pain scale. HIV screening NA for this visit Offered previously. Neurological: Level of Consciousness is awake, alert. EENT: swelling to face and neck. Respiratory: Respiratory effort is even, unlabored. GI: Denies nausea, vomiting. Historical: - Allergies: No known drug Allergies; - Home Meds: 1. hydrocodone-acetaminophen 5-325 mg Oral tab 1 tab every 6 hours (Last dose: 07/20/2016 11:00) 2. ibuprofen 600 mg Oral tab 1 tab every 6 hours (Last dose: 07/20/2016 13:00) 3. Cleocin 300 mg Oral cap 1 cap every 6 hours (Last dose: 07/20/2016 20:00) - PMHx: none; - PSHx: Appendectomy; - Social history: Smoking status: Patient states was never smoker of tobacco. No barriers to communication noted, The patient speaks fluent Malay, Speaks appropriately for age, Preferred Language: Malay. - Family history: Not pertinent. - : The pt / caregiver states he / she is not on anticoagulants. Home medication list is obtained from the patient. - Exposure Risk Screening:: None identified. Screenin:56 Screening information is obtained from the patient. Fall risk: No risks identified. lf1 Assistance ADL's: requires no assistance with activities of daily living. Abuse/DV Screen: The patient / caregiver reports he/she is: not in a situation that causes fear, pain or injury. Nutritional screening: No deficits noted. Advance Directives: Currently, there is no health care proxy. There is no active DNR order. There is no living will. home support is adequate. Assessment: 21:19 General: Appears in no apparent distress, comfortable, Behavior is appropriate for age, ko2 cooperative. Pain: Location: left cheek, mouth and left jaw. Neurological: Level of Consciousness is awake, alert. Respiratory: Airway is patent Respiratory effort is even, unlabored, Respiratory pattern is regular, symmetrical, Breath sounds are clear bilaterally. Derm: Skin is normal. 22:24 General: Appears in no apparent distress, comfortable, Behavior is appropriate for age, ko2 cooperative. Neurological: Level of Consciousness is awake, alert. Respiratory: Airway is patent Respiratory effort is even, unlabored. Derm: Skin is normal. 23:22 General: Appears in no apparent distress, comfortable, Behavior is appropriate for age, ko2 cooperative. Neurological: Level of Consciousness is awake, alert. Respiratory: Airway is patent Respiratory effort is even, unlabored, Respiratory pattern is. Derm: Skin is normal. 07/21 00:38 General: Appears in no apparent distress, Behavior is appropriate for age, cooperative. ko2 Neurological: Level of Consciousness is awake, alert. Respiratory: Airway is patent Respiratory effort is even, unlabored. Derm: Skin is normal. Vital Signs: 07/20 20:42 BP 156 / 80; Pulse 113; Resp 18 S; Temp 101.3(O); Pulse Ox 99% on R/A; Weight 70.31 kg gr2 (R); Height 68 in. (172.72 cm) (R); Pain 3/10; 20:58 BP 145 / 76 (auto/); ko2 20:59 Pulse 112 MON; Pulse Ox 97% ; ko2 21:43 BP 150 / 76 (auto/); ko2 21:44 Pulse 86 MON; Pulse Ox 98% ; ko2 22:13 Pulse 82 MON; Pulse Ox 99% ; ko2 22:36 BP 142 / 88 (auto/); ko2 22:43 BP 143 / 84 (auto/); ko2 22:43 Pulse 88 MON; Pulse Ox 100% ; ko2 23:13 BP 144 / 76 (auto/); ko2 23:14 Pulse 92 MON; Pulse Ox 99% ; ko2 07/21 00:09 BP 134 / 68; Pulse 99; Resp 16; Temp 99.5(O); Pulse Ox 97% ; Pain 2/10; ko2 07/20 20:42 Body Mass Index 23.57 (70.31 kg, 172.72 cm) gr2 Vitals: 07/20 20:42 Log In Time: July 20, 2016 at 20:42. gr2 ED Course: 20:41 Patient visited by Betty Amor. gr2 20:41 Other - Complete Info On Cds is Private Physician. gr2 20:41 Patient moved to Waiting gr2 20:43 Patient visited by Betty Amor. gr2 20:43 Patient moved to Pre RCE gr2 20:53 Triage Initiated lf1 20:54 Karina Sloan FNP is PHCP. le 20:54 Stephanie Salvador,RN is Primary Nurse. cz 20:54 Patient moved to 8 cz 21:08 Patient visited by Karina Sloan FNP. le 21:12 Patient visited by Karina Sloan FNP. le 21:19 BLOOD CULTURES Sent. ko2 21:20 The patient / caregiver is instructed regarding the plan of care and ED course. ko2 21:20 Inserted saline lock: 20 gauge in left antecubital area and blood collected. The ko2 patient tolerated the procedure well. 22:23 Patient visited by Barbie Jeffers PCA. devonte 23:09 CT Neck With Contrast Returned. EDMS 23:14 Tory Lopez is Hospitalizing Provider. le 23:45 [facility] [place] was scanned into [email or web address] and attached to record. pm4 07/21 00:39 No procedures done that require assistance. ko2 00:41 Patient visited by Robb Collins PCA. kb5 11:43 T-Sheet-- Draft Copy was scanned into [email or web address] and attached to record. gb Administered Medications: 07/20 21:19 Drug: NS 0.9% 1000 ml [sodium chloride 0.9 % intravenous solution] Route: IV; Rate: 150 ko2 mL/hr; Site: left antecubital; 22:38 Drug: Ampicillin-Sulbactam Sodium 3 grams [ampicillin-sulbactam 1.5 gram solution for ko2 injection] Route: IVPB; Infused Over: 30 mins; Site: left antecubital; 07/21 00:10 Follow up: IV Intake: 100ml ko2 00:10 Follow up: IV Status: Completed infusion ko2 07/20 23:17 Drug: Acetaminophen 650 mg [acetaminophen 160 mg/5 mL (5 mL) oral solution (20 mL)] ko2 Route: PO; Intake: 07/21 00:10 IV: 100.00ml; Total: 100.00ml. ko2 Order Results: Lab Order: CBC with Diff; SPEC'M 07/20/16 21:09 Test: WHITE BLOOD COUNT; Value: 15.7; Range: 4.0-10.0; Abnormal: Above high normal; Units: K/mm3; Status: F Test: RED BLOOD COUNT; Value: 5.40; Range: 4.30-6.10; Units: M/mm3; Status: F Test: HEMOGLOBIN; Value: 16.4; Range: 14.0-18.0; Units: g/dl; Status: F Test: HEMATOCRIT; Value: 47.0; Range: 42.0-52.0; Units: %; Status: F Test: MEAN CORPUSCULAR VOLUME; Value: 87.0; Range: 80.0-96.0; Units: fl; Status: F Test: MEAN CORPUSCULAR HEMOGLOBIN; Value: 30.5; Range: 27.0-33.0; Units: pg; Status: F Test: MEAN CORPUSCULAR HGB CONC; Value: 35.0; Range: 32.0-36.5; Units: g/dl; Status: F Test: RED CELL DISTRIBUTION WIDTH; Value: 11.6; Range: 11.5-14.5; Units: %; Status: F Test: PLATELET COUNT, AUTOMATED; Value: 290; Range: 150-450; Units: k/mm3; Status: F Test: NEUTROPHILS %; Value: 84.1; Range: 36.0-66.0; Abnormal: Above high normal; Units: %; Status: F Test: LYMPH %; Value: 9.0; Range: 24.0-44.0; Abnormal: Below low normal; Units: %; Status: F Test: MONO %; Value: 4.2; Range: 0.0-5.0; Units: %; Status: F Test: EOS %; Value: 1.5; Range: 0.0-3.0; Units: %; Status: F Test: BASO %; Value: 0.1; Range: 0.0-1.0; Units: %; Status: F Test: LARGE UNSTAINED CELL %; Value: 1.1; Range: 0.0-4.0; Units: %; Status: F Test: NEUTROPHILS #; Value: 13.2; Range: 1.8-7.7; Abnormal: Above high normal; Units: K/mm3; Status: F Test: LYMPH #; Value: 1.4; Range: 1.5-6.5; Abnormal: Below low normal; Units: K/mm3; Status: F Test: MONO #; Value: 0.7; Range: 0.0-0.8; Units: K/mm3; Status: F Test: EOS #; Value: 0.2; Range: 0.0-0.50; Units: K/mm3; Status: F Test: BASO #; Value: 0.0; Range: 0.0-0.2; Units: K/mm3; Status: F Test: LARGE UNSTAINED CELL #; Value: 0.2; Range: 0.0-0.4; Units: K/mm3; Status: F [place] [facility] [place]C'M 07/20/16 21:09 Test: GLUCOSE, FASTING; Value: 109; Range: 70-105; Abnormal: Above high normal; Units: MG/DL; Status: F Test: BLOOD UREA NITROGEN; Value: 10; Range: 7-18; Units: MG/DL; Status: F Test: CREATININE FOR GFR; Value: 1.01; Range: 0.70-1.30; Units: MG/DL; Status: F Test: SODIUM LEVEL; Value: 137; Range: 136-145; Units: MEQ/L; Status: F Test: POTASSIUM SERUM; Value: 3.5; Range: 3.5-5.1; Units: MEQ/L; Status: F Test: CHLORIDE LEVEL; Value: 98; Range: 98-107; Units: MEQ/L; Status: F Test: CARBON DIOXIDE LEVEL; Value: 29; Range: 21-32; Units: MEQ/L; Status: F Test: ANION GAP; Value: 10; Range: 8-16; Units: MEQ/L; Status: F Test: CALCIUM LEVEL; Value: 9.4; Range: 8.5-10.1; Units: MG/DL; Status: F Radiology Order: CT Neck With Contrast Test: CT Neck With Contrast REASON FOR EXAMINATION: jaw/neck swelling s/p extraction; ; CT of the soft tissues of the neck with contrast; Clinical history: swelling.; Technique: Multiple axial CT images were obtained from the base of the skull to the upper thorax afte; r administration of nonionic intravenous contrast. Coronal and sagittal reconstructions were also obt; ained.; Findings: The visualized paranasal sinuses are clear. The pterygopalatine fossa, pterygoid plates and; pterygoid muscles are unremarkable. The mucosa of the naso- and oropharynx appears unremarkable. The; hypopharynx and larynx show no pathology. The visualized osseous structures are intact. The airway i; s patent. No focal mass is appreciated. There is no evidence of lymphadenopathy. The thyroid gland ap; pears unremarkable. There is extensive superficial soft tissue swelling in the left mandibular and ma; xillary regions. No focal mass or fluid collection is identified. Tiny pockets of gas are seen at the; tooth extraction site in the posterior left mandible.; Impression: Diffuse ill-defined soft tissue swelling in the left maxillary and mandibular regions, co; nsistent with cellulitis. No discrete evidence of an abscess is identified at this time. Follow-up is; suggested as clinically indicated.; ; Outcome: 07/20 23:15 Decision to Hospitalize by Provider. le 23:51 CT Study completed. ko2 07/21 00:39 Discharge Assessment: Patient awake, alert and oriented x 3. No cognitive and/or ko2 functional deficits noted. Patient verbalized understanding of disposition instructions. patient administered narcotics - no. The following High Risk Discharge criteria are identified: None. Admitted to Pediatrics accompanied by tech, family with patient, via wheelchair, with chart. Condition: stable. Admission hand-off: Report called to [facility]. Property sent home with patient. 00:57 Patient left the ED. ml3 Signatures: Dispatcher [employer] EDMS Manuel Ames, RN RN cz Shelley Barrera, Reg Reg gb Kamille Guevara, Athletic Coach Unit ml3 Robb Collins, KILN REMOVER KILN REMOVER kb5 Karina Diane,VIKA SANDY lf1 Karina Sloan, PRESSURE VESSEL INSPECTOR PRESSURE VESSEL INSPECTOR Barbie Henderson, KILN REMOVER KILN REMOVER devonte Betty Amor gr2 Stephanie Salvador RN RN ko2 Rivera Cook, Reg Reg pm4 Chart Complete [facility]
[2016-07-23 04:00] VITALS: BP 114/58
[2016-07-23] MEDS: AMPICILLIN SOD/SULBACTAM SOD 3 GM in D5W MINI-BAG PLUS 100 ML IV SCH ×2 (04:51→10:40)
[2016-07-23 06:35] LABS: BASO # 0.1 K/mm3 (0.0-0.2); BASO % 1.2 % (0.0-1.0); EOS # 0.1 K/mm3 (0.0-0.50); EOS % 2.2 % (0.0-3.0); LARGE UNSTAINED CELL # 0.2 K/mm3 (0.0-0.4); LARGE UNSTAINED CELL % 2.4 % (0.0-4.0); LYMPH # 2.8 K/mm3 (1.5-6.5); LYMPH % 41.2 % (24.0-44.0); MEAN CORPUSCULAR HEMOGLOBIN 30.5 pg (27.0-33.0); MEAN CORPUSCULAR HGB CONC 34.6 g/dl (32.0-36.5); MONO # 0.4 K/mm3 (0.0-0.8); MONO % 6.2 % (0.0-5.0); NEUTROPHILS # 3.1 K/mm3 (1.8-7.7); NEUTROPHILS % 46.9 % (36.0-66.0); PLATELET COUNT, AUTOMATED 282 k/mm3 (150-450); RED CELL DISTRIBUTION WIDTH 12.4 % (11.5-14.5); WHITE BLOOD COUNT 6.5 K/mm3 (4.0-10.0)
[2016-07-23 06:56] LABS: ANION GAP 10 MEQ/L (8-16); BLOOD UREA NITROGEN 10 MG/DL (7-18); CALCIUM LEVEL 8.6 MG/DL (8.5-10.1); CARBON DIOXIDE LEVEL 27 MEQ/L (21-32); CHLORIDE LEVEL 107 MEQ/L (98-107); CREATININE FOR GFR 0.84 MG/DL (0.70-1.30); GLUCOSE, FASTING 88 MG/DL (70-105); MAGNESIUM LEVEL 2.2 MG/DL (1.4-2.0); POTASSIUM SERUM 4.5 MEQ/L (3.5-5.1); SODIUM LEVEL 144 MEQ/L (136-145)
[2016-07-23 08:00] VITALS: BP 115/65
[2016-07-23] MEDS: IBUPROFEN 800 MG TAB PO SCH ×2 (08:11→16:52)
[2016-07-23] MEDS: CHLORHEXIDINE GLUCONATE 0.12 % 15ML UDC (PERIDEX ORAL RINSE) SSP SCH ×3 (09:32→16:53)
[2016-07-23] MEDS: ENOXAPARIN 40 MG/0.4 ML SYRINGE (J1650) SC SCH (09:32)
[2016-07-23] MEDS ORDERED: IBUP80TA PO (16:30)
--- NOTE | 2016-07-24 08:31 | IPN ---
DATE: 07/22/2016 SUBJECTIVE: This is a 20-year-old male who is seen and examined at bedside. Overnight underwent incision and drainage (I and D) of his abscess with oral surgeon. Post surgery, his diet was advanced. States that he feels a lot better today. Was able to tolerate full liquid diet. Thinks pain and swelling is improved. Able to close his mouth more completely compared to before. No fevers, chills, nausea, vomiting, chest pain, shortness of breath, palpitations. OBJECTIVE: Vital signs: Blood pressure 130/74, heart rate 81, respiration rate 19, temperature 95.3, pulse ox 99% on room air. Intake and output in the last 24 hours 600 and 1600. General: Patient is lying in bed, comfortable, no acute distress. Alert, awake , oriented times three, pleasant, cooperative. HEENT: Extraocular movement intact. Left jaw is less swollen today compared to yesterday. Still somewhat firm to palpation but not tender to palpation. No obvious purulent drainage within oral mucosa. Neck supple. Trachea midline. Chest: Symmetric chest rise. No accessory muscle use. Lung sounds clear to auscultation bilaterally. Heart: Regular rate and rhythm, S1, S2 present. Abdomen: Soft, nontender, nondistended. Bowel sounds present. No guarding. No rebound. Extremities: No pedal edema. Pedal pulses present bilaterally. LABORATORY DATA: WBC 10.7, hemoglobin 13.3, hematocrit 39.4, platelets 302. Neutrophil 82.7, sodium 141, potassium 4.3, chloride 102, carbon dioxide 28, BUN 12, creatinine 0.6, glucose 106, CRP 10.8 improved from yesterday 17.4. Abscess culture pending. Blood culture is negative after 24 hours. IMPRESSION/PLAN: Mr. Dyson is a 20-year-old male presented with left jaw pain, swelling. 1. Abscess secondary to facial abscess. He is status post incision and drainage. Greatly appreciate Dr. Sosa's assistance. Continue with Unasyn. His pain appears to be under well control with current regimen. Will followup with Dr. Sosa's recommendation. 2. Leukocytosis. Significantly resolved. 3. Resume Lovenox post surgery. My preceptor for this patient encounter was Dr. Mishra. The preceptor was physically present in the building during the encounter and was fully available. As needed, all aspects of the patient interview, examination, medical decision making process, and medical care plan development were reviewed and approved by the preceptor. The preceptor is aware and concurs with the plan as stated in the body of this note and will attest to such by his/her cosignature. KAMRYN
--- NOTE | 2016-07-24 13:57 | DS.PDOC ---
Discharge Summary General Date of Admission Jul 20, 2016 at 23:22 Date of Discharge Jul 23, 2016 at 17:25 Discharge Summary PROCEDURES PERFORMED DURING STAY: I&D of oral abscess COMPLICATIONS/CHIEF COMPLAINT: Facial Cellulitis ADMISSION/DISCHARGE DIAGNOSES: 1. Sepsis secondary to oral abscess HISTORY OF PRESENT ILLNESS/HOSPITAL COURSE: This 20-year-old male past medical history presents complaining of pain and swelling of the left jaw. He recently had extraction of left lower wisdom teeth. The patient followed up with his dentist prescribed him antibiotics however patient only took them for one day prior to severe worsening of his pain and swelling. Patient presented to the emergency department and was noted to have significant swelling as well as in duration of this site. He is CT of the neck noted below. Dr. Sosa was consulted and the patient had an I&D of the abscess site. He is also placed on Unasyn and tolerated therapy well. His inflammatory markers have been trending down. Dr. Sosa has evaluated patient's and since the patient is tolerating a diet, not requiring IV medications, he has discharged patient home. has also sent a prescription for Augmentin to the patient's pharmacy. Patient will be following up with his primary doctor as well as Dr. Sosa. DISCHARGE MEDICATIONS: Please see below. ALLERGIES: Please see below. PHYSICAL EXAMINATION ON DISCHARGE: Vitals: (see below) General: No acute distress, laying comfortably in bed. HEENT: Moist mucous membranes. Left mandibular region with induration. Patient does still have a drain in the left lower region adjacent to the extracted wisdom teeth at the abscess site. Swelling has significantly improved with in the neck as well as the mandibular region since admission. Neck: No JVD or lymphadenopathy Cardiac: RRR, No murmurs Pulm: Clear to auscultation b/l. No wheezing, rhonchi Abd: NT/ND + BS Ext: No edema or cyanosis LABORATORY DATA: Please see below. IMAGING: CT Neck 07/22/16 Findings: The visualized paranasal sinuses are clear. The pterygopalatine fossa , pterygoid plates and pterygoid muscles are unremarkable. The mucosa of the naso- and oropharynx appears unremarkable. The hypopharynx and larynx show no pathology. The visualized osseous structures are intact. The airway is patent. No focal mass is appreciated. There is no evidence of lymphadenopathy. The thyroid gland appears unremarkable. There is extensive superficial soft tissue swelling in the left mandibular and maxillary regions. No focal mass or fluid collection is identified. Tiny pockets of gas are seen at the tooth extraction site in the posterior left mandible. Impression: Diffuse ill-defined soft tissue swelling in the left maxillary and mandibular regions, consistent with cellulitis. No discrete evidence of an abscess is identified at this time. Follow-up is suggested as clinically indicated. VTE Prophylaxis ordered?: Yes DISCHARGE CONDITION: Stable DISPOSITION: 01 Home, Self-Care ACTIVITY: As tolerated DIET: As tolerated and recommended by Dr. Sosa DISCHARGE PLAN AND INSTRUCTIONS: 1. Follow-up with PCP and Dr. Sosa in 1-2 weeks. TIME SPENT ON DISCHARGE: Greater than 30 minutes. Vital Signs/I&Os Vital Signs Date Time Temp Pulse Resp B/P Pulse Ox O2 Delivery O2 Flow Rate FiO2 07/23/16 08:00 97.9 69 18 115/65 99 Room Air 07/21/16 15:45 3 I&O- Last 24 Hours up to 6 AM 07/24/16 06:00 Intake Total 960 ml Balance 960 ml Microbiology Microbiology 07/20/16 Blood Culture - Preliminary, Resulted No Growth after 72 hours. All specime... 07/20/16 Blood Culture - Preliminary, Resulted No Growth after 72 hours. All specime... 07/21/16 Abscess Culture, Received Pending 07/21/16 Anaerobic Culture, Received Pending Medications Scheduled Chlorhexidine Gluconate (Peridex) 0.12 % Vivian 10 ML SSP QID Scheduled PRN Ibuprofen (Ibuprofen) 800 Mg Tab 800 MG PO Q8HP PRN PRN PAIN Allergies Coded Allergies: No Known Allergies (Unverified , 07/20/16) MARTINA ELLISON MD Jul 24, 2016 13:57
--- NOTE | 2016-07-24 14:44 | RO ---
DATE OF PROCEDURE: 07/21/2016 SURGEON: Rene Sosa DMD, MD ADMITTING PHYSICIAN: Bean Mishra MD PREOPERATIVE DIAGNOSIS: Postoperative infection of left fresh foods clerk space. POSTOPERATIVE DIAGNOSIS: Status post postoperative infection of left fresh foods clerk space. PROCEDURE PERFORMED: Incision and drainage of left buccal and submasseteric abscess. SPECIMEN: Aerobes and anaerobes and cultures and sensitivity. ANESTHESIA: General endotracheal anesthesia via oral ray. INDICATIONS FOR SURGERY: Scotty is a pleasant 20-year-old male who the Sunday prior had his wisdom teeth removed at an outside dentist's office. Subsequently, 72 hours later, namely on 07/20/2016, he went back to see his general dentist complaining of pain and severe left-sided facial swelling with limited mouth opening and difficulty swallowing. His general dentist examined the patient and performed aspiration and attempted an incision and drainage of the abscess. However, later on that day, Brian reported that he felt the infection getting worse, meaning that he felt like the swelling had come down further down into his neck and his chest. At this point, his general dentist was concerned enough to have him referred to the [facility] Emergency Room (ER) for me to take a look at and examine and provide any recommendations and management. The patient presented to the ER on , 07/20/2016. He was admitted. He was started on intravenous (IV) antibiotics in the form of 3 grams of Unasyn every 6 hours. His white count on initial presentation was 15,000, which was improved from earlier in the day, which was at 20,000. He underwent a CT scan with contrast of his face and neck. On 07/21/2016 in that morning, I saw Brian. My clinical and radiographic examination revealed that he had a severe left-sided facial swelling with mouth opening to about 15 mm. The floor of the mouth was nonelevated. Uvula was intact. His airway was not involved. The neck was soft and supple with no induration noted, and he did not have any dermal erythema. The left side mandibular vestibule was full and elevated with purulence stemming from the extraction socket of tooth #17. He also had two finger glove drains that were placed by his general dentist in the vestibule. CT scan showed multiple loculations in the submasseteric and buccal space on the left side. There was no involvement of the neck besides the lymphadenopathy, and his airway was not compromised. A complete history and physical was performed on Brian. An informed consent was obtained and is in the patient's chart. I discussed with Brian my intentions, which were to take him to the operating room and perform an intraoral incision and drainage, all the risks, benefits, and alternatives going through. DESCRIPTION OF PROCEDURE: On 07/21/2016, Brian was taken back to the preoperative holding area. Any last-minute questions were addressed. History and physical was updated. At that point, the patient was then taken back to the operating room. He was laid supine on the operating room table. Ulnar nerve protectors were placed. Noninvasive cardiac monitors were applied. At that point, the patient underwent successful oral intubation with an oral ray and underwent general anesthesia. At this point, the patient was then prepped and draped in the usual sterile fashion. A time-out procedure was performed to identify the patient, the procedure, and any other precautions. He did not receive any preoperative antibiotics, as he is on a scheduled antibiotic dose in the next few hours. At this point, once he was prepped and draped and a time-out was performed, a moist throat pack inserted in the patient's oropharynx, followed by the use of a bite block on the right side. I was able to open Scotty up to about 50 mm. Six carpules of 2% lidocaine with 1:100,000 epinephrine were injected as local infiltrations and left mandibular blocks. The two drains that were placed at the outside dentist were removed. At this point, a #15 blade was used to make an incision from the site #17 extending in a sulcular fashion all the way to the mesial of #22, and the incision had a mesial and distal oblique release incisions buccally. The flap was fully released and extended subperiosteally all the way to the inferior border of the mandible. An abundant amount of purulence, as well as necrotic and granulation tissue, was noted, especially in the submasseteric region, and this was carefully and meticulously debrided and evacuated. Once the area was debrided, evacuated, and copiously irrigated, there was no evidence of any sequestrum or bony dehiscence noted. Inferior alveolar nerve was not noted, and the lingual cortex was intact. At this point, the socket of the extraction area #17 was also heavily debrided and curetted. Healthy bleeding bone was noted throughout the area. At this point, a quarter inch Wright was placed into the submasseteric area and held in place with 3-0 silk sutures, and the flap that was originally laid was closed primarily with 3-0 chromic sutures. At this point, the oral cavity was copiously irrigated and suctioned. Throat pack was removed, and the patient was then awakened from general anesthesia and taken back to the postanesthesia care unit (PACU). COMPLICATIONS: None. ESTIMATED BLOOD LOSS: About 30 mL. DRAINS: There was one drains placed. It was a quarter inch Wright that was placed in the left submasseteric space and held in with 3-0 silk sutures.
== END 2016-07-23 17:25 | disposition home or self-care (01) | DRG 856 ==
LOC: M ED 20:40 → M ED INP 23:22 → M PED 07-21 01:00
PROVIDERS: ADMIT Hospitalist; ATTEND Internal Medicine
PROC: 0C9400Z Drainage of Buccal Mucosa with Drainage Device, Open Approach (ICD-10-PCS; principal; 2016-07-21 06:58)
DX: T81.4XXA Infection following a procedure, initial encounter (principal); A41.9 Sepsis, unspecified organism; L03.818 Cellulitis of other sites; L03.211 Cellulitis of face